=== PATIENT | male | born 1990 | race Two or more races ===

== ENCOUNTER 2017-09-07 14:54 | Emergency (ER) | payer OTHER ==
[~2017-09-07] VITALS: Ht 180.3 cm; Wt 79.4 kg
[~2017-09-07 14:54] MED LIST: GABA300C; OLAN10TA3
--- NOTE | 2017-09-07 15:00 | NUR ---
BIBRA FROM HOME DT BIZZARE BEHAVIOR POSSIBLE DT DT DRUG USE PER MOTHER. PT IS AAO3, APPEARS IN NO APPARENT DISTRESS. RESPIRARION EVEN AND UNLABORED,. VSS.
[2017-09-07 15:15] LABS: BASOPHILS # (AUTO) 0.1 /CMM (0.0-0.2); BASOPHILS % (AUTO) 1.4 % (0.0-2.0); EOSINOPHILS # (AUTO) 0.1 /CMM (0.0-0.7); EOSINOPHILS % (AUTO) 1.3 % (0.0-6.0); HEMATOCRIT 43 % (39-51); HEMOGLOBIN 14.4 g/dL (13.5-17.5); LYMPHOCYTES # (AUTO) 2.2 /CMM (0.8-4.8); LYMPHOCYTES % (AUTO) 25.6 % (20.0-44.0); MEAN CORPUSCULAR HEMOGLOBIN 30 PG (26.0-33.0); MEAN CORPUSCULAR HGB CONC 33 g/dl (31.0-36.0); MEAN CORPUSCULAR VOLUME 89 fL (80-96); MONOCYTES # (AUTO) 0.6 /CMM (0.1-1.30); MONOCYTES % (AUTO) 7.4 % (2.0-12.0); NEUTROPHILS # (AUTO) 5.8 /CMM (1.8-8.9); NEUTROPHILS % (AUTO) 64.3 % (43.0-81.0); PLATELET COUNT (AUTO) 277 /CMM (150-450); RDW COEFFICIENT OF VARIATION 12.1 (11.5-15.0); RED BLOOD CELL COUNT(AUTO) 4.88 MIL/uL (4.5-6.0); WHITE BLOOD COUNT (AUTO) 8.8 K/uL (4.3-11.0)
[2017-09-07 15:24] LABS: CALCIUM, SERUM 9.3 mg/dL (8.5-10.1); CARBON DIOXIDE 27 mmol/L (21-32); CHLORIDE 103 mmol/L (98-107); CREATININE 0.8 mg/dL (0.6-1.3); GLUCOSE 116 mg/dL (74-106); POTASSIUM 3.8 mmol/L (3.5-5.1); SODIUM SERUM 137 mmol/L (136-145); UREA NITROGEN, BLOOD 16 mg/dL (7-18)
[2017-09-07 15:29] LABS: ALANINE AMINOTRANSFERASE 25 U/L (12-78); ALBUMIN 3.9 g/dL (3.4-5.0); ALCOHOL, BLOOD 12 mg/dL (0-0); ALKALINE PHOSPHATASE 83 U/L (46-116); ASPARTATE AMINOTRANSFERASE 20 U/L (15-37); BILIRUBIN,DIRECT 0.2 mg/dL (0.0-0.2); BILIRUBIN,TOTAL 0.5 mg/dL (0.2-1.0); TOTAL PROTEIN, SERUM 7.3 g/dL (6.4-8.2)
[2017-09-07 15:30] LABS: ACETAMINOPHEN < 10 ug/ml (10-30); SALICYLATE 2.6 mg/dL (2.8-20.0)
--- NOTE | 2017-09-07 15:34 | NUR ---
urine sample sent to lab
[2017-09-07 16:09] LABS: APPEARANCE,URINE Slightly Cloudy (CLEAR); BILIRUBIN,URINE SMALL (NEGATIVE); BLOOD, URINE Negative Ery/uL (NEGATIVE); COLOR,URINE Yellow (YELLOW); KETONES,URINE 15 (NEGATIVE); LEUKOCYTE ESTERASE ,URINE Negative (NEGATIVE); NITRITE, URINE Negative (NEGATIVE); PROTEIN,URINE 30 mg/dl (NEGATIVE); UGLUCOSE Negative (NEGATIVE)
[2017-09-07 16:17] LABS: BACTERIA,URINE Few /HPF (None Seen); RBC,URINE NONE SEEN /HPF (0-2); SQUAMOUS EPITHELIAL CELL,UR Rare /HPF (None Seen); URINE AMORPHOUS PHOSPHATES Few /HPF (None Seen); WBC,URINE 0-2 /HPF (0-3)
--- NOTE | 2017-09-07 17:23 | NUR ---
GOVIND RN,BATCH ATTENDANT CALLED FOR EVAL
[2017-09-07] MEDS ORDERED: LORAZEPAM 1 MG TABLET ONE (17:28)
[2017-09-07] MEDS ORDERED: LORAZEPAM 1 MG TABLET PO ONE (17:30)
--- NOTE | 2017-09-07 19:43 | NUR ---
PATIENT PLACED ON 5150 INVOLUNTARY HOLD, ACCEPTED BY DR PETE AND GOING TO [facility], DX BIPOLAR DISORDER.
--- NOTE | 2017-09-07 19:47 | NUR ---
RN TO RN REPORT CAN BE GIVEN .
--- NOTE | 2017-09-07 19:47 | NUR ---
CALLED [facility] FOR TRANSPORTATION ETA [id number]
--- NOTE | 2017-09-07 20:38 | NUR ---
REPORT GIVEN TO DONNA BEASLEY AT [facility] FOR TRANSFER.
[2017-09-07 20:50] VITALS: BP 116/82
--- NOTE | 2017-09-07 20:51 | NUR ---
PATIENT TRANSPORTED TO [facility] VIA EMT/STRETCHER. PATIENT CALM AND COOPERATIVE. NO COMPLICATIONS NOTED. LEFT VIA AMBULANCE.
== END 2017-09-07 20:51 ==
LOC: ER 14:58
DX: F20.9 Schizophrenia, unspecified (principal); F31.9 Bipolar disorder, unspecified; F15.10 Other stimulant abuse, uncomplicated; F12.10 Cannabis abuse, uncomplicated; F10.10 Alcohol abuse, uncomplicated; F17.200 Nicotine dependence, unspecified, uncomplicated
CPT/HCPCS: 36415; 80048; 80076; 80305; 80329; 81001; 85025; 99285; A4606; A6402; G0480 ×2; Z7610; 81000-TC